=== PATIENT | female | born 1965 | race Caucasian/White ===

== ENCOUNTER 2017-03-24 19:16 | Emergency (ER) | payer OTHER ==
[~2017-03-24] VITALS: Ht 152.4 cm; Wt 65.8 kg
[2017-03-24 21:11] LABS: BILIRUBIN,URINE NEG (NEG); CLARITY,URINE CLEAR; COLOR,URINE STRAW; GLUCOSE,URINE NEG (NEG); NITRITE,URINE NEG (NEG); UROBILINOGEN,URINE 0.2 mg/dL (0.2 mg/dL)
[2017-03-24] MEDS ORDERED: CYCL-331 PO (21:29)
[2017-03-24 21:34] VITALS: BP 153/60
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
== END 2017-03-24 21:34 | disposition home or self-care (01) ==
LOC: ER 19:16
DX: S29.012A Strain of muscle and tendon of back wall of thorax, initial encounter (principal); Z88.2 Allergy status to sulfonamides; V49.9XXA Car occupant (driver) (passenger) injured in unspecified traffic accident, initial encounter; Y93.89 Activity, other specified; Y99.8 Other external cause status; Y92.89 Other specified places as the place of occurrence of the external cause
CPT/HCPCS: 81003; 99283

== ENCOUNTER → 2018-09-29 | Outpatient (CLI) | payer OTHER ==
[~2018-09-29] MED LIST: CYCL-331 PO
--- NOTE | 2018-10-02 13:36 | RAD ---
DATE: 09/29/2018 EXAM: MAMMO RUBI SCREENING BILATERAL HISTORY: Routine screen COMPARISON: 09/08/2016 This study was interpreted with the benefit of Computerized Aided Detection (CAD). Breast Density: HETERO The breast parenchyma is heterogenously dense, which could reduce sensitivity of mammography. Breast parenchyma level C. FINDINGS: The fibroglandular tissues are heterogeneously dense in a slightly nodular pattern. No spiculated mass or architectural distortion is seen. No suspicious microcalcifications are evident. IMPRESSION: Stable mammograms without evidence of malignancy. BI-RADS CATEGORY: 2 BENIGN FINDING(S) RECOMMENDED FOLLOW-UP: 12M 12 MONTH FOLLOW-UP PQRS compliance statement: Patient information was entered into a reminder system with a target due date for the next mammogram. Mammography is a sensitive method for finding small breast cancers, but it does not detect them all and is not a substitute for careful clinical examination. A negative mammogram does not negate a clinically suspicious finding and should not result in delay in biopsying a clinically suspicious abnormality. "Our facility is accredited by the [employer] Mammography Program."
== END | disposition home or self-care (01) ==
LOC: MAMMO 07:59
PROVIDERS: ATTEND General Practice
DX: Z12.31 Encounter for screening mammogram for malignant neoplasm of breast (principal)
CPT/HCPCS: 77063; 77067

== ENCOUNTER → 2021-12-25 | Outpatient (CLI) | payer OTHER ==
[~2021-12-25] MED LIST changes: -CYCL-331 PO; +CYCL10TA19 PO
--- NOTE | 2021-12-25 12:50 | RAD ---
EXAMINATION: US PELVIS COMPLETE, 12/25/2021 8:13 AM CLINICAL INDICATION: Uterine prolapse TECHNIQUE: Grayscale, color and spectral Doppler ultrasound images of the pelvis via transabdominal a nd transvaginal approach. COMPARISON: None. FINDINGS: The uterus measures 9.7 x 4.7 x 2.5 cm. The endometrial stripe measures 5 mm in thickness. The myomet rium is mildly heterogeneous. There is a possible 1.9 x 1.3 x 0.8 cm hypoechoic mass in the anterior fundus on the right. The right ovary is not visualized due to bowel. The left ovary measures 1.7 x 1.5 x 1.1 cm. Normal le ft ovarian blood flow. No adnexal mass or free fluid. IMPRESSION: 1. Upper limit of normal endometrial thickness for a postmenopausal patient. 2. Mildly heterogeneous appearance of the uterus with a possible 1.9 cm fibroid in the uterus. 3. The right ovary is not visualized due to bowel. Electronically signed by: Carla Johnson MD (12/25/2021 12:47 PM) [id number]
== END ==
LOC: US 07:58
PROVIDERS: ATTEND Physician Assistant Medical
DX: N81.4 Uterovaginal prolapse, unspecified (principal)
CPT/HCPCS: 76856